=== PATIENT | female | born 1990 | race African-American/Black ===

== ENCOUNTER 2022-12-17 10:35 | Day surgery (SDC) | payer OTHER ==
[~2022-12-17] VITALS: Ht 165.1 cm; Wt 68.0 kg
[2022-12-17] MEDS ORDERED: SUGAMMADEX SODIUM 200 MG/2 ML VIAL IV ONE ×2 (12:00→13:37)
[2022-12-17] MEDS ORDERED: METOCLOPRAMIDE 10 MG/2 ML INJ VIAL ONE (12:00)
[2022-12-17] MEDS ORDERED: MEPERIDINE 25 MG/ML SYR ONE ×2 (12:00→13:39)
[2022-12-17] MEDS ORDERED: ceFAZolin 1,000 MG VIAL ONE (12:00)
[2022-12-17] MEDS ORDERED: SEVOFLURANE 250 ML BTL INH ONE (12:00)
[2022-12-17] MEDS ORDERED: fentaNYL citrate 0.05 MG/ML - 50mL vial IV ONE (12:00)
[2022-12-17] MEDS ORDERED: SUCCINYLCHOLINE CHLORIDE 200 MG/10 ML VIAL IVP ONE ×2 (12:00→12:34)
[2022-12-17] MEDS ORDERED: ROCURONIUM 50 MG/5 ML VIAL IV ONE ×2 (12:00→12:43)
[2022-12-17] MEDS ORDERED: BUPIVACAINE-MPF/EPI 0.25% 30 ML VIAL INJ ONE (12:26)
[2022-12-17] MEDS ORDERED: LIDOCAINE 1% 500 MG/50 ML VIAL ONE (12:26)
[2022-12-17] MEDS ORDERED: fentaNYL citrate 0.05 MG/ML VIAL ONE (12:33)
[2022-12-17] MEDS ORDERED: PROPOFOL 200 MG/20 ML VIAL IV ONE (12:34)
[2022-12-17] MEDS ORDERED: ONDANSETRON 4 MG/2 ML VIAL ONE (12:44)
[2022-12-17] MEDS ORDERED: DEXAMETHASONE 4 MG/ML VIAL ONE (12:45)
[2022-12-17] MEDS ORDERED: ePHEDrine 50 MG/ML VIAL ONE (12:57)
[2022-12-17] MEDS ORDERED: MEPERIDINE 25 MG/ML SYR IVP PRN (13:55)
[2022-12-17] MEDS ORDERED: LACTATED RINGERS 1,000 ML IV SCH (13:55)
[2022-12-17] MEDS: HYDROmorphone 1 MG/ML AMP IVP PRN ×4 (13:55→14:40)
[2022-12-17] MEDS ORDERED: ONDANSETRON 4 MG/2 ML VIAL IVP PRN (13:55)
[2022-12-17] MEDS ORDERED: HYDROmorphone PFS 2 MG/ML SYR ONE (13:56)
[2022-12-17] MEDS ORDERED: HYDR-5191 PO (14:00)
[2022-12-17] MEDS ORDERED: MORPHINE SULFATE 2 MG/ML SYR IVP PRN (14:00)
[2022-12-17] MEDS ORDERED: ONDANSETRON 4 MG/2 ML VIAL IV PRN (14:00)
[2022-12-17] MEDS ORDERED: HYDROmorphone 1 MG/ML AMP IVP PRN (14:00)
[2022-12-17] MEDS ORDERED: MORPHINE SULFATE 4 MG/ML SYR IV PRN (14:00)
[2022-12-17] MEDS ORDERED: oxyCODONE/APAP 5/325 MG 1 TAB TAB PO PRN (14:00)
[2022-12-17] MEDS ORDERED: oxyCODONE/APAP 5/325 MG 1 TAB TAB ONE (15:26)
[2022-12-18] MEDS ORDERED: oxyCODONE/APAP 5/325 MG 1 TAB TAB PO PRN (14:00)
== END 2022-12-17 17:42 | disposition home or self-care (01) ==
LOC: MOR 10:35 → MMU 10:36 → MOR 17:42
PROVIDERS: ATTEND Surgery
DX: K80.10 Calculus of gallbladder with chronic cholecystitis without obstruction (principal)
CPT/HCPCS: 47562; 71045; 82374; J0330; J0690; J1100; J1170; J2001; J2175; J2405; J2704; J2765; J3010; J3490; J7060; J7120